=== PATIENT | female | born 1970 | race Caucasian/White ===

== ENCOUNTER 2025-01-31 20:27 | Emergency (ER) | payer MEDICAID ==
[~2025-01-31] VITALS: Ht 167.6 cm; Wt 67.0 kg
[2025-01-31 20:29] VITALS: O2SAT 98
[2025-01-31 21:35] VITALS: BP 145/95; PULSE 71; RESP 18; TEMP 36.6; O2SAT 97
[2025-01-31] MEDS ORDERED: ALBU18HF2 IH (21:35)
== END 2025-01-31 21:40 | disposition home or self-care (01) ==
LOC: ER 20:27
DX: J45.909 Unspecified asthma, uncomplicated (principal); R06.02 Shortness of breath; F17.210 Nicotine dependence, cigarettes, uncomplicated; Z55.6 Problems related to health literacy; Z76.0 Encounter for issue of repeat prescription
CPT/HCPCS: 99283